=== PATIENT | male | born 1990 | race Caucasian/White ===

== ENCOUNTER 2021-10-23 07:21 | Emergency (ER) | payer OTHER ==
[~2021-10-23] VITALS: Ht 180.3 cm; Wt 86.2 kg
[2021-10-23 07:31] VITALS: BP_SYST 127
--- NOTE | 2021-10-23 07:41 | NUR ---
Pt to bed 4. Bed in lowest position.
--- NOTE | 2021-10-23 07:46 | NUR ---
patient to ED at this time after playing hokey and developing left elbow pain. patient has good CS and poor motor. patient states he is experiencing intermittent shooting pains in this left arm. patient waiting to see MD.
--- NOTE | 2021-10-23 07:48 | NUR ---
ER physician at bedside.
--- NOTE | 2021-10-23 07:57 | NUR ---
Pt at X-ray.
--- NOTE | 2021-10-23 08:09 | NUR ---
MD at bedside to see patient. patient waiting for radiology
--- NOTE | 2021-10-23 08:26 | NUR ---
Patient to Radiology in stable condition
[2021-10-23] MEDS ORDERED: NAPR-1172 PO (08:29)
[2021-10-23] MEDS ORDERED: HYDR-3917 PO (08:53)
--- NOTE | 2021-10-23 08:53 | NUR ---
student career development specialist applied sling on patient. patient administered education on how to apply sling on patient and all questions answered. patient able to demonstrate how to apply sling and check for correct circulation, sensory and motor. patient vss. patient administered ice packs with instructions on how to use ice packs. will continue to monitor the patient.
[2021-10-23 09:07] VITALS: BP_SYST 128
--- NOTE | 2021-10-23 09:07 | NUR ---
patient discharaged in stable condition, vss, patient has on left upper extremity immobilizer and verbalizes comfort. will continue to monitor the patient.
--- NOTE | 2021-10-23 09:08 | NUR ---
Patient given written and verbal discharge instructions and verbalizes understanding. ER MD discussed with patient the results and treatment provided. Patient in stable condition. ID arm band removed.No iv cath this visit no prescription administered. Patient educated on pain management and to follow up with PMD. Pain Scale . Opportunity for questions provided and answered. Medication side effect fact sheet provided.
== END 2021-10-23 09:09 | disposition home or self-care (01) ==
LOC: SED 07:21
DX: M25.522 Pain in left elbow (principal); Z79.899 Other long term (current) drug therapy
CPT/HCPCS: 99283